=== PATIENT | male | born 1990 | race Caucasian/White ===

== ENCOUNTER 2019-10-12 09:12 | Outpatient (CLI) | payer OTHER, SELFPAY ==
[2019-10-12 10:33] LABS: Volume Semen 1.5 mL (1.5-5.0)
[2019-10-12 10:34] LABS: Liquefaction Semen Complete in 30 min. (<30 minutes); Semen Color Opaque (Grey-opaque); Semen Immotility 30 %; Semen Morphology Result to Follow; Semen Non-Progressive Motility 10 %; Semen Progressive Motility 60 % (>32); Semen Total Motility 70 (>40% (PM+NP)); Semen Viscosity Not Increased (Not Increa.)
[2019-10-12 10:39] LABS: Sperm Count 81 Mil/mL (60-150 million/mL)
[2019-10-16 19:51] LABS: Fructose, Semen 298 mg/dL (150-600)
== END 2019-10-12 09:13 | disposition home or self-care (01) ==
LOC: CHSLAB 09:14
PROVIDERS: Visit Provider Advanced Practice Midwife
DX: Z31.49 Encounter for other procreative investigation and testing (principal)
CPT/HCPCS: 82757; 88160; 89320

== ENCOUNTER 2021-09-06 10:59 | Emergency (ER) | payer OTHER, SELFPAY ==
[2021-09-06 11:04] VITALS: BP 132/76; PULSE 64; RESP 14; TEMP 36.9; O2SAT 99
--- NOTE | 2021-09-06 11:18 | ED.URI ---
HPI - URI/Sore Throat General Chief Complaint: Upper Respiratory Infection Stated Complaint: Congestion/Headache Time Seen by Provider: 09/06/21 11:20 Source: patient and RN notes reviewed Mode of arrival: ambulatory Limitations: no limitations History of Present Illness HPI Narrative: 30-year-old male presents with concern for 2-day history of cough, nasal congestion with yellow drainage. Reports head pressure. Reports he is taking DayQuil and NyQuil with little relief. He denies fever, bodies, chills, sweats. Denies nausea, MD elicited complaint: cough and nasal congestion Related Data Allergies Allergy/AdvReac Type Severity Reaction Status Date / Time No Known Allergies Allergy Unverified 10/02/18 08:28 Review of Systems Review of Systems: CONSTITUTIONAL: Denies malaise, chills, sweats, or fever. EYES: Denies visual changes, redness, or discharge. ENT: Reports rhinorrhea, congestion, sinus pain, and sore throat. CARDIOVASCULAR: Denies chest pain, palpitations, or edema. RESPIRATORY: Reports cough. Denies dyspnea. GASTROINTESTINAL: Denies abdominal pain, nausea, vomiting, diarrhea SKIN: Denies rash or itching. MUSCULOSKELETAL: Denies myalgia. NEUROLOGIC: Denies headache. All systems reviewed & are unremarkable except as noted in HPI and below PMFSH Comments At time of signature, agree with nursing past medical, surgical, social and family history. There is no relevant family history pertinent to the presenting complaint Exam Narrative: GENERAL: Well-appearing, well-nourished, and in no acute distress. HEAD: Normocephalic EYES: PERRLA, conjunctivae clear ENT: Nares clear, turbinates edematous and erythematous, clear discharge. Mucous membranes moist. TM pearly jarrell with dull light reflex bilaterally; no tragal tenderness. Oropharynx not erythematous without lesions. Tonsils not enlarged and without exudate, no drooling, no hoarseness, no trismus, uvula midline. NECK: Supple. No lymphadenopathy CHEST: Clear to auscultation, breath sounds equal. No wheezing, rhonchi, rales, or stridor. No respiratory distress, speaks in full sentences. HEART: Regular rate and rhythm. No murmur heard. SKIN: Warm, dry, no rash. NEURO: Alert and oriented x3. PSYCH: Normal mood and affect Course Course Emergency Course: Patient is aware of diagnosis, understands and agrees to treatment plan. Anticipatory guidance given. Patient agrees to follow-up as directed and is aware of reasons to seek care at the emergency department. Portions of this record may have been created with voice recognition software Level of Care: Express Care Visit Vital Signs Vital signs: Vital Signs Temperature 98.4 F 09/06/21 11:04 Pulse Rate 64 09/06/21 11:04 Respiratory Rate 14 09/06/21 11:04 Blood Pressure 132/76 09/06/21 11:04 Pulse Oximetry 99 09/06/21 11:04 Temperature 98.4 F 09/06/21 11:04 Pulse Rate 64 09/06/21 11:04 Respiratory Rate 14 09/06/21 11:04 Blood Pressure 132/76 09/06/21 11:04 Pulse Oximetry 99 09/06/21 11:04 Reviewed. MDM - URI/Sore Throat MDM Narrative Medical decision making narrative: Differential diagnosis considered: Melissa virus, strep pharyngitis, allergic rhinitis, upper respiratory tract infection, sinusitis, rhinosinusitis, nasopharyngitis. viral pharyngitis, otitis media, otitis externa, pneumonia, bronchitis, viral cough syndrome, viral syndrome, and influenza. Exam findings show no acute concerns or changes; patient is non-toxic appearing and is in no distress. Patient is appropriate for outpatient treatment and follow-up. Lab Data Attestation: I reviewed the patient's lab results. Critical Care Time Critical Care Time Critical Care Time: No Discharge Plan Discharge Clinical Impression: Upper respiratory infection Qualifiers: URI type: unspecified viral URI Qualified Code(s): J06.9 - Acute upper respiratory infection, unspecified Patient Disposition: Home, Self-Care Condition:
== END 2021-09-06 11:33 | disposition home or self-care (01) ==
PROVIDERS: Emergency Provider Nurse Practitioner; PCP Internal Medicine
DX: J06.9 Acute upper respiratory infection, unspecified (principal)
CPT/HCPCS: 87804; 99213; G0463

== ENCOUNTER 2022-06-28 18:40 | Emergency (ER) | payer OTHER, SELFPAY ==
[2022-06-28 18:50] VITALS: BP 145/86; PULSE 87; RESP 16; TEMP 37; O2SAT 100
--- NOTE | 2022-06-28 20:00 | ED.URI ---
HPI - URI/Sore Throat General Chief Complaint: Upper Respiratory Infection Stated Complaint: Sore Throat Time Seen by Provider: 06/28/22 20:01 Source: patient, RN notes reviewed and old records reviewed Mode of arrival: ambulatory Limitations: no limitations History of Present Illness HPI Narrative: 31 year old male presents to [facility] with 4 days of sore throat, sinus pressure, body aches. Patient states he has been taking Equate brand sinus medication for his symptoms. 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 He reports that he has been COVID vaccinated and also has had flu shot.He reports that he does not know of any fevers. MD elicited complaint: sore throat, rhinorrhea, nasal congestion, sinus pain and other (headache) Pertinent past history: sinusitis Onset (ago): day(s) (4) Able to tolerate fluids by mouth: Yes Treatments prior to arrival: other (generic equate sinus medication) Related Data Allergies Allergy/AdvReac Type Severity Reaction Status Date / Time No Known Allergies Allergy Unverified 10/02/18 08:28 Review of Systems Review of Systems: CONSTITUTIONAL: reports malaise, chills, sweats, or fever. EYES: Denies visual changes, redness, or discharge. ENT: Reports rhinorrhea, congestion, sinus pain, no otalgia and sore throat. CARDIOVASCULAR: Denies chest pain, palpitations, or edema. RESPIRATORY: Reports occasional dry cough.? Denies dyspnea. GASTROINTESTINAL: Denies abdominal pain, nausea, vomiting, diarrhea SKIN: Denies rash or itching. MUSCULOSKELETAL: reports myalgia. NEUROLOGIC: Denies headache. All systems reviewed & are unremarkable except as noted in HPI and below PMFSH Past Medical History Medical History (Updated 07/01/22 @ 06:36 by Zenaida Crisostomo NP) GERD (gastroesophageal reflux disease) Surgical History Surgical History (Updated 07/01/22 @ 06:37 by Zenaida Crisostomo NP) H/O arthroscopic knee surgery left knee History of placement of ear tubes History of tonsillectomy Social History Social History (Updated 07/01/22 @ 06:34 by Zenaida Crisostomo NP) Smoking status: Never smoker Alcohol intake: current Alcohol use details: social Substance use type: does not use Gender identity (if verbalized by the patient): Male Comments At time of signature, agree with nursing past medical, surgical, social and family history. There is no relevant family history pertinent to the presenting complaint Exam Narrative: GENERAL: Well-appearing, well-nourished, and in no acute distress. HEAD: Normocephalic EYES: PERRLA, conjunctivae clear ENT: Nares clear, turbinates edematous and erythematous, clear discharge. Mucous membranes moist, sinus pressure. TM pearly jarrell with dull light reflex bilaterally; no tragal tenderness. Oropharynx erythematous without lesions. Tonsils not present and throat without exudate, no drooling, no hoarseness, no trismus, uvula midline. NECK: Supple. No lymphadenopathy CHEST: Clear to auscultation, breath sounds equal. No wheezing, rhonchi, rales, or stridor. No respiratory distress, speaks in full sentences.occasional dry cough SAO2 100% on room air HEART: Regular rate and rhythm. No murmur heard. SKIN: Warm, dry, no rash. NEURO: Alert and oriented x3. PSYCH: Normal mood and affect Course Course Emergency Course: Patient is aware of diagnosis, understands and agrees to treatment plan.? Anticipatory guidance given.? Patient agrees to follow-up as directed and is aware of reasons to seek care at the emergency department. Portions of this record may have been created with voice recognition software Level of Care: Express Care Visit Vital Signs Vital signs: Vital Signs Temperature 37.0 C 06/28/22 18:50 Pulse Rate 87 06/28/22 18:50 Respiratory Rate 16 06/28/22 18:50 Blood Pressure 145/86 H 06/28/22 18:50 Pulse Oximetry 100 06/28/22 18:50 Oxygen Delivery Room Air 06/28/22 18:50 Te
== END 2022-06-28 20:13 | disposition home or self-care (01) ==
PROVIDERS: Emergency Provider Registered Nurse; PCP Internal Medicine
DX: J02.9 Acute pharyngitis, unspecified (principal); J06.9 Acute upper respiratory infection, unspecified; K21.9 Gastro-esophageal reflux disease without esophagitis
CPT/HCPCS: 87081; 87880; 99213; G0463

== ENCOUNTER 2023-04-20 08:59 | Emergency (ER) | payer OTHER, SELFPAY ==
[2023-04-20 09:05] VITALS: BP 142/89; PULSE 110; RESP 18; TEMP 37.7; O2SAT 98
--- NOTE | 2023-04-20 09:36 | ED.URI ---
HPI - URI/Sore Throat General Chief Complaint: Upper Respiratory Infection Stated Complaint: cough/nose/achey/fatigue Time Seen by Provider: 04/20/23 09:34 Source: patient and RN notes reviewed Mode of arrival: ambulatory Limitations: no limitations History of Present Illness HPI Narrative: 32 year old male presents with concern for for 5 day history of nasal congestion, cough, body aches. He reports he has been taking and DayQuil and NyQuil with little relief. MD elicited complaint: cough Related Data Home Medications Medication Instructions Recorded Confirmed duloxetine 30 mg capsule,delayed mg PO 04/20/23 release prazosin 2 mg capsule mg 04/20/23 Allergies Allergy/AdvReac Type Severity Reaction Status Date / Time No Known Allergies Allergy Unverified 10/02/18 08:28 Review of Systems Review of Systems: CONSTITUTIONAL: Denies malaise, chills, sweats, or fever. EYES: Denies visual changes, redness, or discharge. ENT: Reports rhinorrhea, congestion. Denies sinus pain, otalgia and sore throat. CARDIOVASCULAR: Denies chest pain, palpitations, or edema. RESPIRATORY: Reports cough. Denies dyspnea. GASTROINTESTINAL: Denies abdominal pain, nausea, vomiting, diarrhea SKIN: Denies rash or itching. MUSCULOSKELETAL: Reports myalgia. NEUROLOGIC: Denies headache. All systems reviewed & are unremarkable except as noted in HPI and below PMFSH Past Medical History Medical History (Updated 04/20/23 @ 09:42 by Carisa Arellano NP) GERD (gastroesophageal reflux disease) Surgical History Surgical History (Updated 07/01/22 @ 06:37 by Zenaida Crisostomo NP) H/O arthroscopic knee surgery left knee History of placement of ear tubes History of tonsillectomy Social History Social History (Updated 07/01/22 @ 06:34 by Zenaida Crisostomo NP) Smoking status: Never smoker Alcohol intake: current Alcohol use details: social Substance use type: does not use Gender identity (if verbalized by the patient): Male Comments At time of signature, agree with nursing past medical, surgical, social and family history. There is no relevant family history pertinent to the presenting complaint Exam Narrative: GENERAL: Well-appearing, well-nourished, and in no acute distress. HEAD: Normocephalic EYES: PERRLA, conjunctivae clear ENT: Nares clear, turbinates edematous and erythematous, clear discharge. Mucous membranes moist. TM pearly jarrell with dull light reflex bilaterally; no tragal tenderness. Oropharynx not erythematous without lesions. Tonsils not enlarged and without exudate, no drooling, no hoarseness, no trismus, uvula midline. NECK: Supple. No lymphadenopathy CHEST: Clear to auscultation, breath sounds equal. No wheezing, rhonchi, rales, or stridor. No respiratory distress, speaks in full sentences. HEART: Regular rate and rhythm. No murmur heard. SKIN: Warm, dry, no rash. NEURO: Alert and oriented x3. PSYCH: Normal mood and affect Course Course Emergency Course: Patient is aware of diagnosis, understands and agrees to treatment plan. Anticipatory guidance given. Patient agrees to follow-up as directed and is aware of reasons to seek care at the emergency department. Portions of this record may have been created with voice recognition software Level of Care: Express Care Visit Vital Signs Vital signs: Vital Signs Temperature 99.8 F H 04/20/23 09:05 Pulse Rate 110 H 04/20/23 09:05 Respiratory Rate 18 04/20/23 09:05 Blood Pressure 142/89 H 04/20/23 09:05 Pulse Oximetry 98 04/20/23 09:05 Oxygen Delivery Room Air 04/20/23 09:05 Temperature 99.8 F H 04/20/23 09:05 Pulse Rate 110 H 04/20/23 09:05 Respiratory Rate 18 04/20/23 09:05 Blood Pressure 142/89 H 04/20/23 09:05 Pulse Oximetry 98 04/20/23 09:05 Oxygen Delivery Room Air 04/20/23 09:05 Reviewed. MDM - URI/Sore Throat MDM Narrative Medical decision making narrative: Differential diagnosis consider
== END 2023-04-20 09:47 | disposition home or self-care (01) ==
PROVIDERS: Emergency Provider Nurse Practitioner; PCP Internal Medicine
DX: J40 Bronchitis, not specified as acute or chronic (principal); Z79.899 Other long term (current) drug therapy
CPT/HCPCS: 99213; G0463